=== PATIENT | female | born 2000 | race Caucasian/White ===

== ENCOUNTER 2019-02-14 10:33 | Emergency (ER) | payer OTHER ==
[2019-02-14 10:41] VITALS: BP 140/51
--- NOTE | 2019-02-14 10:58 | ER Document Report ---
ED Medical Screen (RME) - General Chief Complaint: Vag Bleeding, +preg <12wks Stated Complaint: VAGINAL BLEEDING Time Seen by Provider: 02/14/19 10:50 Mode of Arrival: Ambulatory Information source: Patient Notes: Patient is currently 9 weeks and reports spotting for the past 3 days. Patient reports mild cramping. Patient is G1, P0. Patient denies any urinary symptoms. I have greeted and performed a rapid initial assessment of this patient. A comprehensive ED assessment and evaluation of the patient, analysis of test results and completion of the medical decision making process will be conducted by additional ED providers. Physical Exam - Vital signs Vitals: Temp Pulse Resp BP Pulse Ox 98.4 F 98 H 16 140/51 H 100 02/14/19 10:39 02/14/19 10:39 02/14/19 10:39 02/14/19 10:39 02/14/19 10:39 - Abdominal Tenderness: Tender - Lower pelvic Course - Vital Signs Vital signs: Temp Pulse Resp BP Pulse Ox 98.4 F 98 H 16 140/51 H 100 02/14/19 10:39 02/14/19 10:39 02/14/19 10:39 02/14/19 10:39 02/14/19 10:39
[2019-02-14 11:25] LABS: ABSOLUTE BASOPHILS # (AUTO) 0.1 10^3/uL (0.0-0.2); ABSOLUTE EOSINOPHILS # (AUTO) 0.2 10^3/uL (0.0-0.6); ABSOLUTE LYMPHOCYTES (AUTO) 2.5 10^3/uL (0.5-4.7); ABSOLUTE MONOCYTES (AUTO) 1.2 10^3/uL (0.1-1.4); BASOPHILS % (AUTO) 0.4 % (0-2); EOSINOPHILS % (AUTO) 1.1 % (0-6); HEMOGLOBIN 12.4 g/dL (12.0-15.5); LYMPHOCYTES % (AUTO) 18.1 % (13-45); MEAN CORPUSCULAR HEMOGLOBIN 28.1 pg (27.0-33.4); MEAN CORPUSCULAR HGB CONC 32.6 g/dL (32.0-36.0); MEAN CORPUSCULAR VOLUME 86 fl (80-97); MONOCYTES % (AUTO) 8.4 % (3-13); PLATELET COUNT 413 10^3/uL (150-450); RED BLOOD COUNT 4.41 10^6/uL (3.72-5.28); RED CELL DISTRIBUTION WIDTH 14.9 % (11.5-14.0); TOTAL CELLS COUNTED % (AUTO) 100 %; WHITE BLOOD COUNT 13.9 10^3/uL (4.0-10.5)
[2019-02-14 11:41] LABS: APPEARANCE,URINE CLOUDY; BILIRUBIN,URINE NEGATIVE (NEGATIVE); CALCIUM OXALATE CRYSTALS,URINE FEW /HPF; COLOR,URINE YELLOW; GLUCOSE, URINE NEGATIVE (NEGATIVE); KETONES,URINE NEGATIVE (NEGATIVE); PROTEIN,URINE 30 mg/dL (NEGATIVE); URINE SPECIFIC GRAVITY 1.028; UROBILINOGEN,URINE NEGATIVE mg/dL (<2.0)
--- NOTE | 2019-02-14 11:42 | RADIOLOGY REPORT (SQ) ---
EXAM DESCRIPTION: U/S OB TRANSVAGINAL W/O DOP COMPLETED DATE/TIME: 02/14/2019 11:28 am REASON FOR STUDY: vag bleeding, pelvic cramping COMPARISON: None. TECHNIQUE: Transvaginal static and realtime grayscale images acquired of the pelvis. Additional terry cted spectral and color Doppler images recorded. All images stored on PACs. bHCG: Pending. CLINICAL DATES: 9 weeks 0 days LIMITATIONS: None. FINDINGS: FETUS: Single Living intrauterine . ULTRASOUND EGA: 8 weeks 4 days ULTRASOUND DEBBIE: 09/24/2019 EFW: Not applicable less than 20 weeks. CRL: 2 cm FHR: 165 beats per minute. SURVEY: Too early to assess. AMNIOTIC FLUID: Adequate amount. PLACENTA: Not yet developed due to early gestation. SUBCHORIONIC BLEED: No SIZE OF BLEED: Not applicable. UTERUS: No masses. No anomalies. CERVICAL LENGTH: 2.6 cm Closed. RIGHT ADNEXA: Ovary not identified due to poor acoustical window. No adnexal free fluid. No adnexal masses. LEFT ADNEXA: Ovary not identified due to poor acoustical window. No adnexal free fluid. No adnexal masses. FREE FLUID: None. OTHER: No other significant finding. IMPRESSION: LIVING INTRAUTERINE . EGA 8 weeks 4 days Trimester of : First trimester - 0 to 13 weeks. TECHNICAL DOCUMENTATION: JOB ID: [id number] [employer]- All Rights Reserved Reading location - IP/workstation name: [email or web address]
--- NOTE | 2019-02-14 12:11 | ER Document Report ---
ED GI/ - General Chief Complaint: Vag Bleeding, +preg <12wks Stated Complaint: VAGINAL BLEEDING Time Seen by Provider: 02/14/19 10:50 Primary Care Provider: ALMA MOREL MD [Primary Care Provider] - Follow up as needed Mode of Arrival: Ambulatory Notes: HPI: 18-year-old female G1 at 9 weeks by ultrasound who presents today with some mild vaginal bleeding with one clot each morning on Friday morning, Friday morning, and this morning. She denies any pain, fevers, vomiting, back pain, or dysuria. No lightheadedness or dizziness. ROS: See HPI All other review of systems reviewed and otherwise negative Reviewed vital signs and nursing note as charted by RN. PHYSICAL EXAM: CONSTITUTIONAL: Alert and oriented and responds appropriately to questions. Well-appearing; well-nourished HEAD: Normocephalic; atraumatic EYES: Sclerae is not pale ENT: Normal nose; no rhinorrhea; moist mucous membranes; pharynx without lesions noted NECK: Supple without meningismus; non-tender; no cervical lymphadenopathy, no masses CARD: Regular rate and rhythm; no murmurs; symmetric distal pulses RESP: Normal chest excursion without splinting or tachypnea; breath sounds clear and equal bilaterally ABD/GI: Normal bowel sounds; non-distended; soft, non-tender to deep palpation of all 4 quadrants of the abdomen including the suprapubic region BACK: The back appears normal and is non-tender to palpation EXT: Normal ROM in all joints; non-tender to palpation; no edema SKIN: No acute lesions noted NEURO: CN 2-12 intact; 5/5 bilateral upper and lower extremity strength with sensation intact to light touch PSYCH: The patient's mood and manner are appropriate. Grooming and personal hygiene are appropriate. - Related Data Home Medications: Past Medical History - General Information source: Patient Last Menstrual Period: 12/13/18 - Social History Smoking Status: Never Smoker Frequency of alcohol use: None Drug Abuse: None Family History: Reviewed & Not Pertinent Patient has suicidal ideation: No Patient has homicidal ideation: No Physical Exam - Vital signs Vitals: Temp Pulse Resp BP Pulse Ox 98.4 F 98 H 16 140/51 H 100 02/14/19 10:39 02/14/19 10:39 02/14/19 10:39 02/14/19 10:39 02/14/19 10:39 Course - Re-evaluation Re-evalutation: Given the history and physical examination we will obtain basic labs, perform a transvaginal ultrasound, group and type the patient, perform a pelvic examination. I would like to assess for the possibility of vaginal bleeding during early , molar , ectopic , or miscarriage. 02/14/19 12:10 Labs and ultrasound as recorded. 02/14/19 12:53 Pelvic examination shows no obvious external or internal lesions. No vaginal bleeding appreciated. No adnexal masses tenderness. No cervical motion tenderness. Pelvic labs as recorded. Ultrasound as recorded. Pelvic lab values as recorded showing no obvious trichomonas or bacterial vaginosis. Given the urine analysis, urine culture has been sent. We will start the patient on Macrobid with strict return precautions. Patient has a follow-up appointment with her STUD DRIVER on , 4 days from now. - Vital Signs Vital signs: Temp Pulse Resp BP Pulse Ox 98.4 F 98 H 16 140/51 H 100 02/14/19 10:39 02/14/19 10:39 02/14/19 10:39 02/14/19 10:39 02/14/19 10:39 - Laboratory Result Diagrams: 02/14/19 11:06 Laboratory results interpreted by me: 02/14/19 02/14/19 02/14/19 11:02 11:06 11:06 WBC 13.9 H RDW 14.9 H Absolute Neuts (auto) 10.0 H Beta HCG, Quant 044474.00 H Urine Protein 30 H Urine Blood LARGE H Leukocyte Esterase Rfl MODERATE H Urine Ascorbic Acid 20 H Discharge - Discharge Clinical Impression: Vaginal bleeding affecting early UTI (urinary tract infection) Qualifiers: Urinary tract infection type: site unspecified Hematuria presence: without hematuria Qualified Code(s): N39.0 - Urinary tract infection, site not specified Condition: Good Disposition: HOME, SELF-CARE Additional Instructions: Come back immediately with any increased bleeding, but this is having dizziness, fevers or vomiting, or any other acute problems. Please follow-up with your STUD DRIVER as scheduled and discuss the results of the urine culture as discussed. Prescriptions: Nitrofurantoin/Nitrofuran Mac [Macrobid 100 mg Capsule] 1 tab PO BID #20 capsule Referrals: ALMA MOREL MD [Primary Care Provider] - Follow up as needed
[2019-02-14 12:52] LABS: BACTERIA (WET MOUNT) 4+ BACTERIA SEEN; EPITHELIALS (WET MOUNT) 4+ EPITHELIALS SEEN; RBCS (WET MOUNT) RARE RBCS SEEN; T.VAGINALIS (WET MOUNT) NO TRICHOMONAS SEEN; WBCS (WET MOUNT) 3+ WBCS SEEN; YEAST (WET MOUNT) NO YEAST SEEN
[2019-02-14] MEDS ORDERED: NITROFURANTOIN MONOHYD/M-CRYST 100 MG CAPSULE PO ONE (12:53)
[2019-02-14 14:23] LABS: CHLAM PCR NOT DETECTED (NOT DETECT)
== END 2019-02-14 13:29 | disposition home or self-care (01) ==
LOC: ER 10:33
DX: O20.9 Hemorrhage in early pregnancy, unspecified (principal); O23.41 Unspecified infection of urinary tract in pregnancy, first trimester; Z3A.09 9 weeks gestation of pregnancy
CPT/HCPCS: 99284; 86900; 86901; 36415; 87086; 87210; 84702; 85025; 81001; 87491; 87591; 76817; J8499

== ENCOUNTER 2019-09-15 13:26 | Inpatient (IN) | payer OTHER ==
[2019-09-15 14:17] LABS: APPEARANCE,URINE SLIGHTLY-CLOUDY; BILIRUBIN,URINE NEGATIVE (NEGATIVE); COLOR,URINE YELLOW; GLUCOSE, URINE NEGATIVE (NEGATIVE); KETONES,URINE NEGATIVE (NEGATIVE); LEUKOCYTE ESTERASE,URINE MODERATE (NEGATIVE); NITRITE,URINE NEGATIVE (NEGATIVE); PROTEIN,URINE NEGATIVE (NEGATIVE); URINE SPECIFIC GRAVITY 1.012; UROBILINOGEN,URINE NEGATIVE mg/dL (<2.0)
[2019-09-15 14:35] LABS: URINE AMPHETAMINES SCREEN NEGATIVE; URINE BARBITURATES SCREEN NEGATIVE; URINE BENZODIAZEPINES SCREEN NEGATIVE; URINE COCAINE SCREEN NEGATIVE; URINE MARIJUANA (THC) SCREEN NEGATIVE; URINE METHADONE SCREEN NEGATIVE; URINE PHENCYCLIDINE SCREEN NEGATIVE
[2019-09-15 16:12] LABS: ABSOLUTE EOSINOPHILS # (AUTO) 0.2 10^3/uL (0.0-0.6); ABSOLUTE LYMPHOCYTES (AUTO) 2.5 10^3/uL (0.5-4.7); ABSOLUTE MONOCYTES (AUTO) 1.2 10^3/uL (0.1-1.4); ABSOLUTE NEUT (AUTO) 14.6 10^3/uL (1.7-8.2); BASOPHILS % (AUTO) 0.2 % (0-2); EOSINOPHILS % (AUTO) 0.9 % (0-6); HEMATOCRIT 38.4 % (36.0-47.0); HEMOGLOBIN 12.9 g/dL (12.0-15.5); LYMPHOCYTES % (AUTO) 13.5 % (13-45); MEAN CORPUSCULAR HEMOGLOBIN 30.1 pg (27.0-33.4); MEAN CORPUSCULAR HGB CONC 33.6 g/dL (32.0-36.0); MEAN CORPUSCULAR VOLUME 90 fl (80-97); MONOCYTES % (AUTO) 6.4 % (3-13); PLATELET COUNT 361 10^3/uL (150-450); RED CELL DISTRIBUTION WIDTH 13.7 % (11.5-14.0); TOTAL CELLS COUNTED % (AUTO) 100 %; WHITE BLOOD COUNT 18.6 10^3/uL (4.0-10.5)
[2019-09-15] MEDS ORDERED: OXYTOCIN/0.9 % SODIUM CHLORIDE 30 UNIT/500 ML RTUINJ IV PRN ×2 (16:23→22:15)
[2019-09-15] MEDS ORDERED: OXYTOCIN 10 UNIT/ML VIAL ONE (16:51)
[2019-09-15] MEDS ORDERED: LIDOCAINE 1% INJ-PF (10 MG/ML) 30 ML SDV ONE (16:51)
[2019-09-15] MEDS ORDERED: MISOPROSTOL 0.2 MG TABLET ONE (16:51)
[2019-09-15] MEDS ORDERED: OXYTOCIN/0.9 % SODIUM CHLORIDE 30 UNIT/500 ML RTUINJ ONE (16:52)
--- NOTE | 2019-09-15 16:54 | Admission Physical ---
Datetime Report Generated by CPN: 09/15/2019 16:54 CURRENT ADMISSION Hx Assessment: The History has been Reviewed and is Current Chief Complaint: Vaginal Bleeding Indication for Induction: PROM Admit Impression : Term, Intrauterine ; Ruptured Membranes Admit Plan: Admit to Unit; Initiate Labor Induction Protocol ALLERGIES Medication Allergies: No Known Allergies (09/15/2019) OBSTETRICAL HISTORY EDC: 09/19/2019 00:00 : 1 Para: 0 Gestational Diabetes: No Rh Sensitization: No Incompetent Cervix: No CRYS: No Infertility: No ART Treatment: No Uterine Anomaly: No IUGR: No Hx Previous C/S: No Macrosomia: No Hx Loss/Stillborn: No PIH: No Hx : No Placenta Previa/Abruption: No Depression/PP Depression: No PTL/PROM: No Post Hemorrhage: No Current Procedures: Ultrasound Obstetrical History Comments: G1-Current MEDICAL HISTORY Diabetes: No Blood Transfusion: No Pulmonary Disease (Asthma, TB): No Breast Disease: No Hypertension: No Scientific Recruiter Surgery: No Heart Disease: No Hosp/Surgery: No Autoimmune Disorder: No Anesthetic Complications: No Kidney Disease: No Abnormal Pap Smear: No Neuro/Epilepsy: No Psychiatric Disorders: No Other Medical Diseases: No Hepatitis/Liver Disease: No Significant Family History: No Trauma/Violence : No Thyroid Dysfunction: No INFECTIOUS HISTORY Gonorrhea: No Genital Herpes: No Chlamydia: No Tuberculosis: No Syphilis: No Hepatitis: No HIV/AIDS Exposure: No Rash or Viral Illness: No HPV: No PHYSICAL EXAM General: Normal Heart: Normal Lungs: Normal Back: Normal Abdomen: Normal Extremities: Normal Pelvic Type: Adequate Vital Signs: Reviewed; Within Normal Limits VAGINAL EXAM Contraction Comments: irregular MEMBRANES Membranes: Ruptured Amniotic Fluid Color: Bloody FETUS A EGA: 39.3 Monitoring: External US FHR Category: Category I Estimated Weight (gm): 2865 on 08/30/19 Admit Comment: 18yo G1 @ 39w3d into L_D with reports of vaginal bleeding that started around 0900. Pt is A positive, rubella immune, GBS neg with uncomplicated medical history. On speculum exam bloody show was present with questionable LOF and actim prom was collected which returned positive. Pt also reports Dilshad Hamlin contractions that have intensified this am. Plan is to augment with pitocin at this time, Dr. Womack is the OB cotton agent today and aware of admission. INFORMED CONSENT Assignment: Blaze Womack MD Signature: with User ID: [email or web address] : with User ID: [email or web address]
[2019-09-15] MEDS ORDERED: EPHEDRINE SULFATE INJ 50 MG/1 ML AMPULE ONE (21:02)
[2019-09-15] MEDS ORDERED: BUPIVACAINE HCL 0.25 % INJ/PF (2.5 MG/1 ML) 30 ML VIAL ONE (21:03)
[2019-09-15] MEDS ORDERED: FENTANYL/BUPIVACAINE/NS/PF 300 MCG/150 ML RTUINJ EPI ONE (21:03)
[2019-09-15] MEDS ORDERED: DIPH/PERTUSS(ACELL)/TETANUS VAC/PF 0.5 ML SYR (>=10YO) IM PRN (22:15)
[2019-09-15] MEDS ORDERED: PROMETHAZINE HCL 25 MG SUPP.RECT PR PRN (22:15)
[2019-09-15] MEDS ORDERED: DIPHENHYDRAMINE HCL 25 MG CAPSULE PO PRN (22:15)
[2019-09-15] MEDS ORDERED: PROMETHAZINE HCL INJ 25 MG/1 ML VIAL IV PRN (22:15)
[2019-09-15] MEDS ORDERED: ACETAMINOPHEN WITH CODEINE #3 TABLET PO PRN (22:15)
[2019-09-15] MEDS ORDERED: MAGNESIUM HYDROXIDE SUSP 30 ML UDCUP PO PRN (22:15)
[2019-09-15] MEDS ORDERED: PSEUDOEPHEDRINE HCL 30 MG TABLET PO PRN (22:15)
[2019-09-15] MEDS ORDERED: MEASLES,MUMPS&RUBELLA VACC/PF 0.5 ML VIAL SUBCUT PRN (22:15)
[2019-09-15] MEDS ORDERED: PROMETHAZINE HCL 25 MG TABLET PO PRN (22:15)
[2019-09-15] MEDS ORDERED: NA PHOS,M-B/NA PHOS,DI-BA (ADULT) 133 ML ENEMA PR PRN (22:15)
[2019-09-15] MEDS ORDERED: ZOLPIDEM TARTRATE 5 MG TABLET PO PRN (22:15)
[2019-09-15] MEDS ORDERED: ACETAMINOPHEN 650 MG SUPP.RECT PR PRN (22:15)
[2019-09-15] MEDS ORDERED: DIBUCAINE 1% OINTMENT 28 GM TP PRN (22:15)
[2019-09-15] MEDS ORDERED: GLYCERIN/WITCH HAZEL LEAF 1 EACH MED..WIPE TP PRN (22:15)
[2019-09-15] MEDS ORDERED: BENZOCAINE/MENTHOL AEROSOL SPRAY 56 ML TOP PRN (22:15)
[2019-09-15] MEDS ORDERED: FAMOTIDINE 20 MG TABLET PO ONE (23:00)
--- NOTE | 2019-09-15 23:51 | Delivery Summary ---
Del Sum A-C Datetime Report Generated by CPN: 09/15/2019 23:50 DELIVERY PERSONNEL DELIVERY PERSONNEL: [id number] Delivery Doctor:: Blaze Womack MD Labor and Delivery Nurse:: Jordon Canales RN Staff Pharmacist:: Aimee Lackey RN Nursery Nurse:: Olga Wren RN Nursery Nurse:: Gabino Pena RN Assembly Technician/UTILITIES GROUND WORKER: Laquita Bullock, ST MATERNAL INFORMATION Delivery Anesthesia: Epidural Medications After Delivery: Pitocin Bolus-Please Comment; Pitocin 30 Units in 500ml NS/D5W Meds After Delivery Comment: Pitocin 30 units/500 ml NS Delivery QBL: 250 Maternal Complications: None LABOR SUMMARY EDC: 09/19/2019 00:00 No. Babies in Womb: 1 Attempted: No Labor Anesthesia: Epidural LABOR INFORMATION Reason for Induction: Not Applicable Onset of Labor: 09/15/2019 16:43 Complete Dilatation: 09/15/2019 21:56 Oxytocin: Augmentation Group B Beta Strep: Negative Antibiotics # of Doses: 0 Steroids Given: None Reason Steroids Not Administered: Not Applicable MEMBRANES Membranes Rupture Method: Spontaneous Rupture of Membranes: 09/15/2019 16:43 Length of Rupture (hr): 5.45 Amniotic Fluid Color: Light Meconium Amniotic Fluid Amount: Small Amniotic Fluid Odor: Normal STAGES OF LABOR Stage 1 hr: 5 Stage 1 min: 13 Stage 2 hr: 0 Stage 2 min: 14 Stage 3 hr: 0 Stage 3 min: 2 Total Time in Labor hr: 5 Total Time in Labor min: 29 VAGINAL DELIVERY Episiotomy: None Laceration #1: None Laceration Extension #1: N/A Laceration Repair: Not Applicable Sponge Count Correct: N/A CSECTION DELIVERY Primary Indication: N/A Secondary Indication: N/A CSection Urgency: N/A CSection Incidence: N/A Labor: N/A Elective: N/A CSection Incision: N/A BABY A INFORMATION Delivery Date/Time: 09/15/2019 22:10 Method of Delivery: Vaginal Nurse Controlled Delivery: No Born in Route : No : N/A Forceps: N/A Vacuum Extraction: N/A Shoulder Dystocia : No PRESENTATION/POSITION BABY A Presentation: Cephalic Cephalic Presentation: Vertex Vertex Position: OA Breech Presentation: N/A PLACENTA INFORMATION BABY A Placenta Delivery Time : 09/15/2019 22:12 Placenta Method of Delivery: Spontaneous Placenta Status: Delivered SCORES BABY A Heart Rate 1 min: >100 bpm Resp Effort 1 min: Good Cry Reflex Irritability 1 min: Cough or Sneeze or Pulls Away Muscle Tone 1 min: Active Motion Color 1 min: Body [place], Extremities Blue Resuscitation Effort 1 min: Tactile Stimulation SCORE 1 MIN: 9 Heart Rate 5 min: >100 bpm Resp Effort 5 min: Good Cry Reflex Irritability 5 min: Cough or Sneeze or Pulls Away Muscle Tone 5 min: Active Motion Color 5 min: Body [place], Extremities Blue Resuscitation Effort 5 min: N/A SCORE 5 MIN: 9 INFANT INFORMATION BABY A Gestational Age at Delivery: 39.3 Gestational Status: Full Term- 39- 40.6 Weeks Outcome : Liveborn Condition : Stable Sex: Female IDENTIFICATION BABY A Verification Date/Time: 09/15/2019 22:58 ID Band Number: [id number] Mother's Name Verified: Yes Infant RN Verifying : , RN/Krystal, RN WEIGHT/LENGTH BABY A Infant Birthweight (gm): 2962 Weight (lb): 6 Weight (oz): 8 Length (in): 20.00 Infant Length (cm): 50.80 CORD INFORMATION BABY A No. Cord Vessels: 3 Nuchal Cord : N/A Cord Blood Taken: Yes-For Storage (Mom's Blood type +) Infant Suction: None ASSESSMENT BABY A Complications: Meconium Physical Findings at Delivery: Other Physical Findings- Other: see nursery assessment Infant Respirations: Appears Normal Skin to Skin: Yes Skin to Skin Time (min): 120 Fur Cleaner/ALS Called : No Care By: Olga Wren RN Transferred To: Remains with Mother BABY B INFORMATION : N/A SIGNATURES Signature: with User ID: [email or web address]
--- NOTE | 2019-09-15 23:51 | Warning Signs in Babies ---
VOD Warning Signs Datetime Report Generated by [facility]: 09/15/2019 23:50 VOD#608 -Warning Signs in Babies: Needs to be viewed. (09/15/2019 15:25:Jordon Canales RN)
[2019-09-16] MEDS: IBUPROFEN 800 MG TABLET PO SCH ×3 (05:32→22:41)
[2019-09-16 07:57] LABS: HEMATOCRIT 33.3 % (36.0-47.0); HEMOGLOBIN 11.1 g/dL (12.0-15.5); MEAN CORPUSCULAR HEMOGLOBIN 30.3 pg (27.0-33.4); MEAN CORPUSCULAR HGB CONC 33.4 g/dL (32.0-36.0); MEAN CORPUSCULAR VOLUME 91 fl (80-97); PLATELET COUNT 306 10^3/uL (150-450); RED BLOOD COUNT 3.67 10^6/uL (3.72-5.28); RED CELL DISTRIBUTION WIDTH 13.6 % (11.5-14.0)
[2019-09-16] MEDS: FERROUS SULFATE 325 MG TABLET PO SCH ×2 (10:04→17:42)
[2019-09-16] MEDS: PRENATAL VITAMIN W DHA CAPSULE PO SCH (10:05)
[2019-09-16] MEDS: DOCUSATE SODIUM 100 MG CAPSULE PO SCH ×2 (10:05→17:42)
[2019-09-16] MEDS: SENNOSIDES/DOCUSATE 8.6-50 MG 1 EACH TABLET PO SCH (10:05)
[2019-09-16] MEDS: FAMOTIDINE 20 MG TABLET PO SCH ×2 (10:37→22:41)
--- NOTE | 2019-09-16 11:37 | PDOC PROGRESS REPORT ---
Subjective-OB Progress Note for:: 09/16/19 Subjective: 18yo s/p ppd 1. Voiding and ambulating without difficulty, reports pain well controlled with medication, no concerns today Physical Exam (OB) Vital Signs: Temp Pulse Resp BP Pulse Ox 98.3 F 98 H 16 124/59 L 98 09/16/19 03:06 09/16/19 03:06 09/16/19 03:06 09/16/19 03:06 09/16/19 03:06 Intake & Output 09/15/19 09/16/19 09/17/19 06:59 06:59 06:59 Weight 70.8 kg - General General Appearance: Appears well In distress: None - PIH/Pre-Eclampsia Clonus: Negative Headache: Absent Epigastric Pain: No Visual Changes: No - Episiotomy/Laceration Site Condition: N/A - Lochia Lochia Amount: Scant < 10 ml Lochia Color: Rubra/Red - Abdomen Description: Soft Hernia Present: No Fundal Description: Firm Fundal Height: u/u - u/2 - Respiratory Respiratory Status: No respiratory distress - Extremities Upper extremity: Normal inspection Lower extremities: Normal inspection - Neurological Cognition: Normal Orientation: AAOx4 - Psychological Associated symptoms: Normal affect, Normal mood Objective-Diagnostic Laboratory: 09/16/19 07:12 09/15/19 09/15/19 09/15/19 13:45 16:04 16:04 WBC 18.6 H RBC 4.30 Hgb 12.9 Hct 38.4 MCV 90 MCH 30.1 MCHC 33.6 RDW 13.7 Plt Count 361 Seg Neutrophils % 79.0 H Urine Color YELLOW Urine Appearance SLIGHTLY-CLOUDY Urine pH 7.0 Ur Specific Happy 1.012 Urine Protein NEGATIVE Urine Glucose (UA) NEGATIVE Urine Ketones NEGATIVE Urine Blood LARGE H Urine Nitrite NEGATIVE Ur Leukocyte Esterase MODERATE H Blood Type A POSITIVE Antibody Screen NEGATIVE 09/16/19 07:12 WBC 25.0 H RBC 3.67 L Hgb 11.1 L Hct 33.3 L MCV 91 MCH 30.3 MCHC 33.4 RDW 13.6 Plt Count 306 Seg Neutrophils % Urine Color Urine Appearance Urine pH Ur Specific Happy Urine Protein Urine Glucose (UA) Urine Ketones Urine Blood Urine Nitrite Ur Leukocyte Esterase Blood Type Antibody Screen Assessment and Plan(PN) - Assessment and Plan (1) Vaginal delivery Is this a current diagnosis for this admission?: Yes Plan: routine pp care (2) Elevated white blood cell count, unspecified Qualifiers: Leukocytosis type: unspecified Qualified Code(s): D72.829 - Elevated white blood cell count, unspecified Is this a current diagnosis for this admission?: Yes Plan: IV antibiotics to be started x4 doses per Dr. Mann, repeat cbc ordered for tomorrow morning (3) Prolonged rupture of membranes Is this a current diagnosis for this admission?: Yes Plan: delivered - Time Spent with Patient Time with patient: Less than 15 minutes Medications reviewed and adjusted accordingly: Yes - Disposition Anticipated Discharge: Home Within: within 24 hours
[2019-09-16] MEDS ORDERED: PIPERACILLIN/TAZOBACTAM 3.375 GM VIAL IV SCH (12:00)
[2019-09-16] MEDS: PIPERACILLIN SODIUM/TAZOBACTAM 3.375 GM in NORMAL SALINE 100 ML IV SCH ×2 (12:44→17:42)
[2019-09-16] MEDS ORDERED: DIPH/PERTUSS(ACELL)/TETANUS VAC/PF 0.5 ML SYR (>=10YO) IM PRN (15:30)
[2019-09-16] MEDS ORDERED: PROMETHAZINE HCL INJ 25 MG/1 ML VIAL IV PRN (15:30)
[2019-09-16] MEDS ORDERED: ZOLPIDEM TARTRATE 5 MG TABLET PO PRN ×2 (15:30)
[2019-09-16] MEDS ORDERED: MEASLES,MUMPS&RUBELLA VACC/PF 0.5 ML VIAL SUBCUT PRN (15:30)
[2019-09-17] MEDS: PIPERACILLIN SODIUM/TAZOBACTAM 3.375 GM in NORMAL SALINE 100 ML IV SCH ×4 (00:11→17:59)
[2019-09-17 06:59] LABS: HEMATOCRIT 33.4 % (36.0-47.0); HEMOGLOBIN 11.2 g/dL (12.0-15.5); MEAN CORPUSCULAR HEMOGLOBIN 30.3 pg (27.0-33.4); MEAN CORPUSCULAR HGB CONC 33.5 g/dL (32.0-36.0); MEAN CORPUSCULAR VOLUME 90 fl (80-97); PLATELET COUNT 331 10^3/uL (150-450); RED CELL DISTRIBUTION WIDTH 13.9 % (11.5-14.0); WHITE BLOOD COUNT 20.5 10^3/uL (4.0-10.5)
[2019-09-17] MEDS: FERROUS SULFATE 325 MG TABLET PO SCH ×2 (09:14→17:19)
[2019-09-17] MEDS: FAMOTIDINE 20 MG TABLET PO SCH (09:14)
[2019-09-17] MEDS: DOCUSATE SODIUM 100 MG CAPSULE PO SCH ×2 (09:15→17:19)
[2019-09-17] MEDS: PRENATAL VITAMIN W DHA CAPSULE PO SCH (09:15)
[2019-09-17] MEDS: SENNOSIDES/DOCUSATE 8.6-50 MG 1 EACH TABLET PO SCH (09:15)
[2019-09-17] MEDS: IBUPROFEN 800 MG TABLET PO SCH ×2 (10:25→14:56)
--- NOTE | 2019-09-17 11:08 | PDOC DISCHARGE SUMMARY ---
Impression - Admit/DC Date/PCP Admission Date/Primary Care Provider: 09/15/19 15:36 ALMA MOREL MD Discharge Date: 09/17/19 - Discharge Diagnosis (1) Elevated white blood cell count, unspecified Is this a current diagnosis for this admission?: Yes (2) Prolonged rupture of membranes Is this a current diagnosis for this admission?: Yes (3) Vaginal delivery Is this a current diagnosis for this admission?: Yes - Additional Information Discharge Diet: Regular Discharge Activity: Balance Activity w/Rest, Pelvic Rest Referrals: ALMA MOREL MD [Primary Care Provider] - Prescriptions: Ibuprofen [Motrin 800 mg Tablet] 800 mg PO Q8HP PRN #60 tablet PRN Reason: Home Medications: Vitamin [-U Multiple Vitamin Capsule] 1 cap PO DAILY 09/15/19 Ibuprofen [Motrin 800 mg Tablet] 800 mg PO Q8HP PRN #60 tablet 09/17/19 Results Laboratory Results: WBC 20.5 10^3/uL (4.0-10.5) H 09/17/19 06:07 RBC 3.70 10^6/uL (3.72-5.28) L 09/17/19 06:07 Hgb 11.2 g/dL (12.0-15.5) L 09/17/19 06:07 Hct 33.4 % (36.0-47.0) L 09/17/19 06:07 MCV 90 fl (80-97) 09/17/19 06:07 MCH 30.3 pg (27.0-33.4) 09/17/19 06:07 MCHC 33.5 g/dL (32.0-36.0) 09/17/19 06:07 RDW 13.9 % (11.5-14.0) 09/17/19 06:07 Plt Count 331 10^3/uL (150-450) 09/17/19 06:07 Lymph % (Auto) 13.5 % (13-45) 09/15/19 16:04 [place] % (Auto) 6.4 % (3-13) 09/15/19 16:04 Eos % (Auto) 0.9 % (0-6) 09/15/19 16:04 Baso % (Auto) 0.2 % (0-2) 09/15/19 16:04 Absolute Neuts (auto) 14.6 10^3/uL (1.7-8.2) H 09/15/19 16:04 Absolute Lymphs (auto) 2.5 10^3/uL (0.5-4.7) 09/15/19 16:04 Absolute Monos (auto) 1.2 10^3/uL (0.1-1.4) 09/15/19 16:04 Absolute Eos (auto) 0.2 10^3/uL (0.0-0.6) 09/15/19 16:04 Absolute Basos (auto) 0.0 10^3/uL (0.0-0.2) 09/15/19 16:04 Seg Neutrophils % 79.0 % (42-78) H 09/15/19 16:04 Urine Color YELLOW 09/15/19 13:45 Urine Appearance SLIGHTLY-CLOUDY 09/15/19 13:45 Urine pH 7.0 (5.0-9.0) 09/15/19 13:45 Ur Specific [place] 1.012 09/15/19 13:45 Urine Protein NEGATIVE mg/dL (NEGATIVE) 09/15/19 13:45 Urine Glucose (UA) NEGATIVE mg/dL (NEGATIVE) 09/15/19 13:45 Urine Ketones NEGATIVE mg/dL (NEGATIVE) 09/15/19 13:45 Urine Blood LARGE (NEGATIVE) H 09/15/19 13:45 Urine Nitrite NEGATIVE (NEGATIVE) 09/15/19 13:45 Urine Bilirubin NEGATIVE (NEGATIVE) 09/15/19 13:45 Urine Urobilinogen NEGATIVE mg/dL (<2.0) 09/15/19 13:45 Ur Leukocyte Esterase MODERATE (NEGATIVE) H 09/15/19 13:45 Urine Ascorbic Acid 20 (NEGATIVE) H 09/15/19 13:45 Membranes Rupture POSITIVE (NEGATIVE) H 09/15/19 14:55 Urine Opiates Screen NEGATIVE 09/14/19 13:45 Urine Methadone Screen NEGATIVE 09/14/19 13:45 Ur Barbiturates Screen NEGATIVE 09/14/19 13:45 Ur Phencyclidine Scrn NEGATIVE 09/14/19 13:45 Ur Amphetamines Screen NEGATIVE 09/14/19 13:45 U Benzodiazepines Scrn NEGATIVE 09/14/19 13:45 Urine Cocaine Screen NEGATIVE 09/14/19 13:45 U Marijuana (THC) Screen NEGATIVE 09/14/19 13:45 RPR NONREACTIVE (NONREACTIVE) 09/15/19 16:04 Blood Type A POSITIVE 09/15/19 16:04 Antibody Screen NEGATIVE 09/15/19 16:04 Plan Plan of Treatment: follow up in 4 weeks at [facility] for post check
[2019-09-17 11:54] VITALS: BP 111/63
== END 2019-09-17 17:55 | disposition home or self-care (01) | DRG 998 ==
LOC: LC 13:26 → LR 15:36 → 2S 09-16 00:35
PROVIDERS: ADMIT Obstetrics & Gynecology Gynecology; ATTEND Obstetrics & Gynecology Gynecology
PROC: 10E0XZZ Delivery of Products of Conception, External Approach (ICD-10-PCS; principal; 2019-09-15)
PROC: 3E0234Z Introduction of Serum, Toxoid and Vaccine into Muscle, Percutaneous Approach (ICD-10-PCS; 2019-09-17)
DX: O77.0 Labor and delivery complicated by meconium in amniotic fluid (principal); O42.90 Premature rupture of membranes, unspecified as to length of time between rupture and onset of labor, unspecified weeks of gestation; Z3A.39 39 weeks gestation of pregnancy; Z23 Encounter for immunization
CPT/HCPCS: 1967; 36415; 80307; 81005; 84112; 85025; 85027; 86592; 86850; 86900; 86901; 90715; J2543; J2590; J3010; J3490; J7050

== ENCOUNTER 2019-10-02 15:19 | Emergency (ER) | payer OTHER ==
--- NOTE | 2019-10-02 15:35 | ER Document Report ---
ED Medical Screen (RME) - General Chief Complaint: Upper Abdominal Pain Stated Complaint: RIGHT SIDE PAIN Time Seen by Provider: 10/02/19 15:33 Primary Care Provider: ALMA MOREL MD [Primary Care Provider] - Follow up as needed Mode of Arrival: Ambulatory Information source: Patient Notes: 18-year-old female presented to ED for complaint of right upper quadrant abdominal pain this last night. She states she delivered her child on September 14 natural born. She denies any nausea or vomiting at this time. She is alert oriented respirations regular and unlabored speaking in full sentences. She does not have any history of any gallbladder or kidney stone in the past. I have greeted and performed a rapid initial assessment of this patient. A comprehensive ED assessment and evaluation of the patient, analysis of test results and completion of medical decision making process will be conducted by an additional ED providers. - Related Data Allergies/Adverse Reactions: No Known Allergies Allergy (Verified 09/15/19 13:45) Past Medical History Psychiatric Medical History: Denies: Hx Depression Physical Exam - Vital signs Vitals: Temp Pulse Resp BP Pulse Ox 98.0 F 92 H 16 128/74 H 98 10/02/19 15:22 10/02/19 15:22 10/02/19 15:22 10/02/19 15:22 10/02/19 15:22 Course - Vital Signs Vital signs: Temp Pulse Resp BP Pulse Ox 98.0 F 92 H 16 128/74 H 98 10/02/19 15:22 10/02/19 15:22 10/02/19 15:22 10/02/19 15:22 10/02/19 15:22 Doctor's Discharge - Discharge Referrals: ALMA MOREL MD [Primary Care Provider] - Follow up as needed
[2019-10-02 16:11] LABS: ABSOLUTE BASOPHILS # (AUTO) 0.1 10^3/uL (0.0-0.2); ABSOLUTE EOSINOPHILS # (AUTO) 0.3 10^3/uL (0.0-0.6); ABSOLUTE LYMPHOCYTES (AUTO) 2.4 10^3/uL (0.5-4.7); ABSOLUTE MONOCYTES (AUTO) 0.8 10^3/uL (0.1-1.4); ABSOLUTE NEUT (AUTO) 5.4 10^3/uL (1.7-8.2); BASOPHILS % (AUTO) 0.6 % (0-2); EOSINOPHILS % (AUTO) 3.7 % (0-6); HEMATOCRIT 40.7 % (36.0-47.0); HEMOGLOBIN 13.5 g/dL (12.0-15.5); MEAN CORPUSCULAR HEMOGLOBIN 30.2 pg (27.0-33.4); MEAN CORPUSCULAR HGB CONC 33.1 g/dL (32.0-36.0); MEAN CORPUSCULAR VOLUME 91 fl (80-97); MONOCYTES % (AUTO) 8.6 % (3-13); PLATELET COUNT 382 10^3/uL (150-450); RED BLOOD COUNT 4.46 10^6/uL (3.72-5.28); RED CELL DISTRIBUTION WIDTH 13.3 % (11.5-14.0); SEGMENTED NEUTROPHILS % (AUTO) 60.1 % (42-78); TOTAL CELLS COUNTED % (AUTO) 100 %; WHITE BLOOD COUNT 8.9 10^3/uL (4.0-10.5)
[2019-10-02 16:15] LABS: ALBUMIN 4.4 g/dL (3.7-5.6); ALKALINE PHOSPHATASE 92 U/L (50-135); ANION GAP 6 (5-19); ASPARTATE AMINO TRANSFERASE 29 U/L (5-30); BILIRUBIN,TOTAL 0.5 mg/dL (0.2-1.3); BLOOD UREA NITROGEN 10 mg/dL (7-20); CALCIUM 9.2 mg/dL (8.4-10.2); CARBON DIOXIDE 27 mmol/L (22-30); CHLORIDE 107 mmol/L (98-107); GLUCOSE 83 mg/dL (75-110); POTASSIUM 4.1 mmol/L (3.6-5.0)
[2019-10-02 16:17] LABS: APPEARANCE,URINE SLIGHTLY-CLOUDY; BILIRUBIN,URINE NEGATIVE (NEGATIVE); COLOR,URINE YELLOW; GLUCOSE, URINE NEGATIVE (NEGATIVE); KETONES,URINE NEGATIVE (NEGATIVE); LEUKOCYTE ESTERASE,URINE MODERATE (NEGATIVE); NITRITE,URINE NEGATIVE (NEGATIVE); PROTEIN,URINE NEGATIVE (NEGATIVE); URINE SPECIFIC GRAVITY 1.019; UROBILINOGEN,URINE NEGATIVE mg/dL (<2.0)
--- NOTE | 2019-10-02 16:43 | RADIOLOGY REPORT (SQ) ---
EXAM DESCRIPTION: U/S ABDOMEN LIMITED W/O DOP IMAGES COMPLETED DATE/TIME: 10/02/2019 4:22 pm REASON FOR STUDY: Upper quadrant abdominal pain COMPARISON: None. TECHNIQUE: Dynamic and static grayscale images acquired of the abdomen and recorded on PACS. Additio lauren selected color Doppler and spectral images recorded. LIMITATIONS: None. FINDINGS: PANCREAS: No masses. Visualized pancreatic duct normal caliber. LIVER: No masses. Echotexture normal. LIVER VASCULATURE: Normal directional flow of the main portal vein and hepatic veins. GALLBLADDER: No stones. Normal wall thickness. No pericholecystic fluid. ULTRASOUND-DETECTED THOMAS'S SIGN: Negative. INTRAHEPATIC DUCTS AND COMMON DUCT: CBD and intrahepatic ducts normal caliber. No filling defects. INFERIOR VENA CAVA: Normal flow. AORTA: No aneurysm. RIGHT KIDNEY: Normal size. Normal echogenicity. No solid or suspicious masses. No hydronephrosis. No calcifications. PERITONEAL AND RIGHT PLEURAL SPACE: No ascites or effusions. OTHER: No other significant findings. IMPRESSION: UNREMARKABLE RIGHT UPPER QUADRANT ULTRASOUND. TECHNICAL DOCUMENTATION: JOB ID: [id number] [employer]- All Rights Reserved Reading location - IP/workstation name: [email or web address]
--- NOTE | 2019-10-02 17:33 | ER Document Report ---
ED General - General Chief Complaint: Upper Abdominal Pain Stated Complaint: RIGHT SIDE PAIN Time Seen by Provider: 10/02/19 15:33 Primary Care Provider: ALMA MOREL MD [Primary Care Provider] - Follow up as needed Mode of Arrival: Ambulatory - HPI Notes: Patient is a 18-year-old female who presents to the emergency department for evaluation of pain in the epigastrium and right upper quadrant. It started last night at about 11:00. She was not really doing anything in particular. She described it as an aching and sore pain. It is worsened by laughter, occasionally by deep breaths. She is eating and drinking normally, no change in her pain with food or drink. She had a normal bowel movement today. No fevers or chills. No nausea or vomiting. She just delivered at the end of August, still having normal bleeding, but denies any other vaginal discharge. - Related Data Allergies/Adverse Reactions: No Known Allergies Allergy (Verified 09/15/19 13:45) Home Medications: None Past Medical History - General Information source: Patient - Social History Smoking Status: Never Smoker Chew tobacco use (# tins/day): No Frequency of alcohol use: None Drug Abuse: None Family History: Reviewed & Not Pertinent Patient has homicidal ideation: No Psychiatric Medical History: Denies: Hx Depression Review of Systems - Review of Systems Gastrointestinal: See HPI -: Yes All other systems reviewed and negative Physical Exam - Vital signs Vitals: Temp Pulse Resp BP Pulse Ox 98.0 F 92 H 16 128/74 H 98 10/02/19 15:22 10/02/19 15:22 10/02/19 15:22 10/02/19 15:22 10/02/19 15:22 - Notes Notes: Vital signs reviewed, please refer to chart. Head is normocephalic, atraumatic. Pupils equal round, reactive to light. Neck is supple without meningismus. Heart is regular rate and rhythm. Lungs are clear to auscultation bilaterally. Abdomen is soft, nontender, normoactive bowel sounds throughout. She does have a mild diastasis recti, easily palpable with Valsalva maneuver, at the epigastrium. Extremities without cyanosis, clubbing. Posterior calves are nontender. Peripheral pulses are equal. Skin is warm and dry. Patient is awake, alert, neurological exam is nonfocal. Course - Re-evaluation Re-evalutation: 10/02/19 17:28 Patient presents the emergency department for evaluation. She was initially seen through triage. On examination today she has a palpable diastases. She has no constitutional symptoms, her work-up and ultrasound here is unremarkable. I do strongly suspect musculoskeletal etiology. She is told she can take ibuprofen, with food, as needed for pain. She is to follow-up with her primary care provider/OB, return to the ED with worsening or new concerning symptoms of any sort. - Vital Signs Vital signs: Temp Pulse Resp BP Pulse Ox 98.0 F 92 H 16 128/74 H 98 10/02/19 15:29 10/02/19 15:22 10/02/19 15:22 10/02/19 15:22 10/02/19 15:22 - Laboratory Result Diagrams: 10/02/19 15:44 10/02/19 15:44 Laboratory results interpreted by me: 10/02/19 15:44 Urine Blood LARGE H Ur Leukocyte Esterase MODERATE H - Diagnostic Test Radiology reviewed: Reports reviewed Radiology results interpreted by me: 10/02/19 17:29 Abdomen Ultrasound 10/02/19 15:35 IMPRESSION: UNREMARKABLE RIGHT UPPER QUADRANT ULTRASOUND. Discharge - Discharge Clinical Impression: Musculoskeletal abdominal pain, Diastasis recti Condition: Stable Disposition: HOME, SELF-CARE Instructions: Abdominal Pain ([facility]) Additional Instructions: I suspect your abdominal pain is musculoskeletal, from a condition called diasta ses recti, resulting from your . Ibuprofen as needed for pain, please take this with food. Follow-up with your primary care provider next week. If you develop fevers, vomiting, worsening pain, or any other new or concerning symptoms, please return immediately to the emergency department for evaluation. Referrals: ALMA MOREL MD [Primary Care Provider] - Follow up as needed
[2019-10-02 17:58] VITALS: BP 124/75
== END 2019-10-02 17:58 | disposition home or self-care (01) ==
LOC: ER 15:19
DX: O90.89 Other complications of the puerperium, not elsewhere classified (principal); R10.13 Epigastric pain; R10.11 Right upper quadrant pain; M62.08 Separation of muscle (nontraumatic), other site
CPT/HCPCS: 36415; 76705; 80053; 81001; 83690; 85025; 99284